=== PATIENT | male | born 1995 | race Caucasian/White ===

== ENCOUNTER 2018-01-28 21:36 | Emergency (ER) | payer BC ==
--- OUTSIDE RECORDS SUMMARY | 2018-01-28 21:50 | XMS REPORT ---
:1995 External Reference #:[id number] Author Organization [facility] Address [address] [place] [address] Phone [phone] Care Team Providers Name Role Phone Robby Phipps M.D. Care Team Information Retail Support Specialist Unavailable Payers Type Date Identification Numbers Payment Provider Subscriber Commercial Effective: Policy Number: [employer] BC/BS August Darian 2014 [id number] Group Name: [employer] o [address] [address] PayID: [id number] TAVON Plunkett [address] Problems Date Description Provider Status Onset: 08/06/2016 Gastroesophageal reflux disease with Robby Phipps M.D. 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 Seat Belt/Car Seat 10/31/2015 Always uses seat belt Smoke Alarms Yes Smoke Alarms Carbon Monoxide Detector: Yes Allergies, Adverse Reactions, Alerts Date Description Reaction Status Severity Comments 10/31/2015 Grass active 10/31/2015 Amoxicillin Urticaria active 10/31/2015 Cephalosporins active Medications Medication Date Status Form Strength Qnty SIG Indications Ordering Provider Levocetirizine 05/31 Active Tablets 5mg 30tab 1 by mouth L50.5 Chayo Phippside /2017 s coby trinh M.D. Ventolin HFA 11/19 Active Aerosol 108(90Bas 18gm 2 puffs J45.40 Quezada , /2017 e) every 4 Francis mcg/Act hours as Dheeraj Pimentel needed Asmanex HFA 11/19 Active Aerosol 200mcg/Ac 13gm 2 puffs J45.40 t every day Robby Olivares with Edwin.Juan spacer, rinse and spit after use. Prednisone 05/31 Hx Tablets 20mg 18tab 3 tab by J45.41 s mouth every Johan. - day for 3 M.D. then by mouth daily for 3 days then 1 by mouth daily for 3 days Erythromycin 11/26 Hx Ointment 5mg/GM 3.5gm 05/20 in. B30.9 strip left Robby Olivares - eye three M.D. 05/31 times a day until clear for 24 hours No Active 11/19 Hx Unknown Medications /2016 - 11/19 Famotidine 08/03 Hx Tablets 20mg 60tab 1 by mouth K21.9 s every day Robby Batres M.D. 01/12 No Active 06/01 Hx Unknown Medications /2016 - 08/03 Prednisone 02/11 Hx Tablets 20mg 18tab 3 tab by J98.01 s mouth every Johan. - day for 3 M.D. 02/20 days then by mouth daily for 3 days then 1 by mouth daily for 3 days Doxycycline 02/11 Hx Capsules 100mg 20cap 1 by mouth J01.90 Aniya Phipps s twice a day Robby Batres M.D. 02/21 Montelukast 02/11 Hx Tablets 10mg 90tab 1 tab by Desire s mouth every Johan. - evening M.D. 06/01 Dymista 02/11 Hx Suspension 137-50mcg 23gm 1-2 sprays Desire, / intranasal Robby Olivares - every day M.D. 06/01 No Active 10/30 Hx Desire, Robby RodríguezDMeche 10/30 Prednisone 10/30 Hx Tablets 20mg 18tab 3 tab by J98.01 Praveen, s mouth every Johan. - day for 3 M.D. 11/08 days then by mouth daily for 3 days then 1 by mouth daily for 3 days Proair 10/30 Hx Aerosol 108(90Bas 1unit 2 puffs J98.01 Desire, Respicl e) s every 4 Johan. - mcg/Act hours as M.D. 06/01 Amoxicillin 10/30 Hx Tablets 875mg 20tab 1 tab by J01.90 s mouth twice Johan. - a day M.D. 10/30 Clarithromycin 10/30 Hx Tablets 500mg 20tab 1 cap by Desire s mouth twice Johan. - a day M.D. 11/09 Immunizations CPT Code Status Date Vaccine Lot # [id number] Given 10/31/2015 Adacel-DTaP 11-64 Yrs Of Age [id number] Vital Signs Date Vital Result Comment 01/12/2018 Weight 237.00 lb BP Systolic 130 mmHg BP Diastolic 66 mmHg Body Temperature 99.4 F Height 74.75 inches 6'2.75" BMI (Body Mass Index) 29.8 kg/m2 05/31/2017 Weight 219.00 lb BP Systolic 110 mmHg BP Diastolic 70 mmHg Body Temperature 98.2 F Height 74.75 inches 6'2.75" BMI (Body Mass Index) 27.6 kg/m2 11/26/2016 Weight 219.50 lb BP Systolic 118 mmHg BP Diastolic 58 mmHg Body Temperature 97.0 F Height 74.75 inches 6'2.75" Heart Rate 72 /min BMI (Body Mass Index) 27.6 kg/m2 Left Visual Acuity Distance 20/20 sees color Right Visual Acuity Distance 20/20 11/19/2016 Weight 221.50 lb BP Systolic 110 mmHg BP Diastolic 80 mmHg Body Temperature 99.0 F Height 74.75 inches 6'2.75" Heart Rate 72 /min BMI (Body Mass Index) 27.9 kg/m2 08/03/2016 Weight 217.00 lb BP Systolic 130 mmHg BP Diastolic 80 mmHg Body Temperature 97.7 F Height 74.75 inches 6'2.75" BMI (Body Mass Index) 27.3 kg/m2 06/01/2016 Weight 207.00 lb BP Systolic 120 mmHg BP Diastolic 70 mmHg Body Temperature 97.9 F Height 74.75 inches 6'2.75" BMI (Body Mass Index) 26.0 kg/m2 Body Mass Index Percentile 87 % 03/24/2016 Weight 225.00 lb BP Systolic 120 mmHg BP Diastolic 74 mmHg Body Temperature 97.3 F Height 74.75 inches 6'2.75" BMI (Body Mass Index) 28.3 kg/m2 Body Mass Index Percentile 68 % 02/12/2016 Weight 219.00 lb BP Systolic 120 mmHg BP Diastolic 64 mmHg Body Temperature 97.9 F Height 74.75 inches 6'2.75" BMI (Body Mass Index) 27.6 kg/m2 10/31/2015 Weight 203.50 lb BP Systolic 110 mmHg BP Diastolic 60 mmHg Body Temperature 97.1 F Height 74.75 inches 6'2.75" Heart Rate 100 /min BMI (Body Mass Index) 25.6 kg/m2 Results Description No Information Procedures Date CPT Code Description Status 03/24/2016 92511 Tympanometry Completed 03/24/2016 34868 Audiogram/Pure Tone Hearing Test Completed Encounters Type Date Location Provider CPT E/M Dx Office Visit 05/31/2017 3:20p Main Office Robby Phipps M.D. 96206 J06.9 J45.41 L50.5 Office Visit 11/26/2016 1:50p Main Office Robby Phipps M.D. 89308 B30.9 Office Visit 11/19/2016 10:50a Main Office Robby Phipps M.D. 43339 J30.9 J45.40 Office Visit 08/03/2016 3:50p Main Office Robby Phipps M.D. 83946 K21.9 Office Visit 06/01/2016 2:50p Main Office Robby Phipps M.D. 72600 S00.83xA Office Visit 03/24/2016 3:30p Main Office Robby Phipps M.D. 45857 H90.2 Office Visit 02/12/2016 1:20p Main Office Robby Phipps M.D. 64323 J98.01 J06.9 J01.90 Office Visit 10/31/2015 11:30a Main Office Robby Phipps M.D. 17782 J30.9 J98.01 J01.90 Z23 Office Visit 08/16/2015 10:00a Main Office Francis Quezada M.D. 75384 Z02.4 Plan of Care No Information Available
--- NOTE | 2018-01-28 22:55 | UC ---
Lower Extremity/Ankle HPI - HPI Summary HPI Summary: R ankle gave out and pt fell injuring R ankle and foot - History of Current Complaint Chief Complaint: UCLowerExtremity Stated Complaint: RT ARM INJ Time Seen by Provider: 01/28/18 22:40 Hx Obtained From: Patient Onset/Duration: Sudden Onset Pain Intensity: 3 Aggravating Factor(s): Ambulation Able to Bear Weight: Yes - Allergies/Home Medications Allergies/Adverse Reactions: Allergies Allergy/AdvReac Type Severity Reaction Status Date / Time amoxicillin [From Augmentin] Allergy Hives Verified 01/28/18 22:14 clavulanic acid Allergy Hives Verified 01/28/18 22:14 [From Augmentin] Home Medications: Home Medications Albuterol HFA INHALER* [Ventolin HFA Inhaler*] 2 puff INH Q4H PRN 01/28/18 [ History Confirmed 01/28/18] Aspirin/Acetaminophen/Caffeine [Acetaminophen/Aspirin/Caf 250-250-65 mg] 500 mg PO Q6H PRN 01/28/18 [History Confirmed 01/28/18] Ibuprofen [Motrin Ib] 400 mg PO Q6H PRN 01/28/18 [History Confirmed 01/28/18] Levocetirizine Dihydrochloride [Xyzal Allergy 24Hr] 5 mg PO BEDTIME 01/28/18 [ History Confirmed 01/28/18] diphenhydrAMINE HCl [Benadryl Allergy] 50 mg PO ONCE PRN 01/28/18 [History Confirmed 01/28/18] PMH/Surg Hx/FS Hx/Imm Hx Previously Healthy: Yes - Surgical History Surgical History: Yes Surgery Procedure, Year, and Place: appy - Family History Known Family History: Positive: None - Social History Occupation: Employed Full-time Lives: Alone Alcohol Use: Weekly Substance Use Type: None Smoking Status (MU): Never Smoked Tobacco Type: Smokeless Tobacco Amount Used/How Often: 1 can per day Length of Time of Smoking/Using Tobacco: 6 yrs - Immunization History Vaccination Up to Date: Yes Review of Systems Constitutional: Negative Skin: Other - abrasion L knee Eyes: Negative ENT: Negative Respiratory: Negative Cardiovascular: Negative Gastrointestinal: Negative Genitourinary: Negative Motor: Negative Neurovascular: Negative Musculoskeletal: Other: - R ankle/foot pain Neurological: Negative Psychological: Negative Is Patient Immunocompromised?: No All Other Systems Reviewed And Are Negative: Yes Physical Exam Triage Information Reviewed: Yes Appearance: Well-Appearing Vital Signs: Initial Vital Signs Temp 98.3 F 01/28/18 22:18 Pulse 77 01/28/18 22:18 Resp 16 01/28/18 22:18 BP 128/65 01/28/18 22:18 Pulse Ox 99 01/28/18 22:18 Vital Signs Reviewed: Yes Eyes: Positive: Conjunctiva Clear ENT: Positive: Normal ENT inspection Neck: Positive: Supple, Nontender, No Lymphadenopathy Respiratory: Positive: Lungs clear, Normal breath sounds Cardiovascular: Positive: RRR, No Murmur Abdomen Description: Positive: Nontender, No Organomegaly, Soft Bowel Sounds: Positive: Present Musculoskeletal: Positive: Other: - RLE: hip, knee with no tenderness or deformity. R lateral ankle/ R lateral foot with swelling and tenderness. foot has full s/v/m function Neurological: Positive: Alert Psychological: Positive: Age Appropriate Behavior Skin Exam: Normal, Other - Abrasion L knee but no bony deformity or tenderness. Diagnostics - Radiology No standard instances Radiology Interpretation Completed By: ED Physician - wet read ankle sts but no fx. foot no fx Lower Extremity Course/Dx - Course Course Of Treatment: no fx or dislocation. - Differential Dx/Diagnosis Provider Diagnoses: Sprain R ankle and R lateral foot. Abrasion L knee Discharge - Sign-Out/Discharge Documenting (check all that apply): Patient Departure All imaging exams completed and their final reports reviewed: No - Discharge Plan Condition: Stable Disposition: HOME Patient Education Materials: Ankle Sprain (ED), Foot Sprain (ED), Abrasion (ED) Referrals: Robby Tolliver MD [Primary Care Provider] - 5 Days Davis Malagon MD [Medical Doctor] - 5 Days Additional Instructions: FOLLOW UP WITH DR TOLLIVER OR DR MALAGON IN 5 DAYS FOR A RECHECK - Billing Disposition and Condition Condition: STABLE Disposition: Home
--- NOTE | 2018-01-29 07:59 | RAD ---
INDICATION: Right ankle injury. TECHNIQUE: 3 views of the right ankle were obtained. FINDINGS: Soft tissue swelling is noted along the anterolateral aspect of the ankle. No fracture is seen. Joint spaces appear maintained. IMPRESSION: SOFT TISSUE SWELLING, NO FRACTURE IS SEEN. R0
--- NOTE | 2018-01-29 08:01 | RAD ---
INDICATION: Right foot injury. TECHNIQUE: 3 views of the right foot were obtained. FINDINGS: There is lateral soft tissue swelling. The bones are normal alignment. No fracture is seen. Joint spaces appear maintained. IMPRESSION: SOFT TISSUE SWELLING, NO FRACTURE IS SEEN. R0
--- NOTE | 2018-01-31 10:17 | UC ---
Discharge - Sign-Out/Discharge Documenting (check all that apply): Post-Discharge Follow Up All imaging exams completed and their final reports reviewed: Yes - Discharge Plan Condition: Stable Disposition: HOME Patient Education Materials: Ankle Sprain (ED), Foot Sprain (ED), Abrasion (ED) Referrals: Davis Malagon MD [Medical Doctor] - 5 Days Robby Tolliver MD [Primary Care Provider] - 5 Days Additional Instructions: FOLLOW UP WITH DR TOLLIVER OR DR MALAGON IN 5 DAYS FOR A RECHECK - Billing Disposition and Condition Condition: STABLE Disposition: Home
== END 2018-01-28 23:36 | disposition home or self-care (01) ==
LOC: UCCORT 21:36
DX: S93.601A Unspecified sprain of right foot, initial encounter (principal); S80.212A Abrasion, left knee, initial encounter; S96.911A Strain of unspecified muscle and tendon at ankle and foot level, right foot, initial encounter; W19.XXXA Unspecified fall, initial encounter; Y93.9 Activity, unspecified; Y92.9 Unspecified place or not applicable; Z88.0 Allergy status to penicillin; Z88.8 Allergy status to other drugs, medicaments and biological substances; F17.220 Nicotine dependence, chewing tobacco, uncomplicated
CPT/HCPCS: 99203; G0463

== ENCOUNTER 2018-04-13 12:19 | Day surgery (SDC) | payer BC ==
[~2018-04-13 12:19] MED LIST: Buffered Lidocaine 0.9% SYRIN* 5 ML/SYR SYRINGE INTRADERM ONE; Dexamethasone TAB* 4 MG PO ONE; DiMENhydriNATE IV* 50 MG/ML VIAL IV PUSH PRN; Famotidine IV* 10 MG/ML 2 ML (20 mg) IV ONE; Morphine VIAL* 4 MG/ML VIAL (1 ml vial) IV PRN; Naloxone* 0.4 MG/ML 1 ML VIAL IV PRN; Ondansetron TAB* 4 MG PO ONE; PROCHLORPERAZINE INJ 5 MG/ML 2 ML VIAL IV PRN; Scopolamine 1.5 mg* PATCH TRANSDERM PRN; fentaNYL* 50 MCG/ML 2 ML VIAL (100 MCG VIAL) IV PRN
[2018-04-13] MEDS ORDERED: Famotidine IV* 10 MG/ML 2 ML (20 mg) ONE (13:23)
[2018-04-13] MEDS ORDERED: Ondansetron ODT TAB* 4 MG ONE (13:23)
[2018-04-13] MEDS ORDERED: Dexamethasone TAB* 4 MG ONE (13:24)
[2018-04-13] MEDS ORDERED: Clindamycin 900 MG/D5W BAG(*) 900 MG/50 ML BAG IVPB ONE (13:24)
[2018-04-13] MEDS ORDERED: fentaNYL* 50 MCG/ML 5 ML VIAL (250 MCG VIAL) ONE (14:01)
[2018-04-13] MEDS ORDERED: Midazolam* 1 MG/ML 5 ML VIAL (5 MG) ONE (14:01)
[2018-04-13] MEDS ORDERED: KETAMINE HCL* 50 MG/ML 10 ML VIAL ONE (14:01)
[2018-04-13] MEDS ORDERED: Bupivacaine 0.5% W/EPI SDV* 30 ML VIAL ONE (14:52)
[2018-04-13] MEDS ORDERED: Bupivacaine 0.25% W/EPI* 10 ML SDV ONE (14:52)
[2018-04-13] MEDS ORDERED: Ketorolac INJ* 30 MG/ML 1 ML VIAL ONE (15:19)
[2018-04-13] MEDS ORDERED: Propofol* 10 MG/ML 20 ML BTL ONE (15:19)
[2018-04-13] MEDS ORDERED: Lidocaine 2% PF * 5 ML VIAL ONE (15:19)
[2018-04-13] MEDS ORDERED: Lidocaine 1% MPF wEPI 200,000* 30 ML SDV ONE (15:20)
[2018-04-13] MEDS ORDERED: Ropivacaine* 2 MG/ML 20 ML VIAL (0.2%) ONE (15:20)
[2018-04-13] MEDS ORDERED: HYDROmorphone INJ1* 1 MG/ML SYRINGE ONE (16:29)
[2018-04-13] MEDS ORDERED: Morphine VIAL* 4 MG/ML VIAL (1 ml vial) ONE (17:33)
[2018-04-13] MEDS ORDERED: oxyCODONE/Acetamin 5/325 MG* TAB ONE (17:34)
[2018-04-13] MEDS: oxyCODONE/Acetamin 5/325 MG* TAB PO PRN ×2 (17:34→17:36)
[2018-04-13 18:43] VITALS: BP 120/73
--- NOTE | 2018-04-14 11:21 | OP ---
CC: PCP, Robby Phipps MD * DATE OF OPERATION: 04/13/18 - [facility] DATE OF : 89 ATTENDING SURGEON: Radha Chao MD CHARGE POSTER: SAM Robles. An music library assistant was needed for the entirety of the case to help with positioning, retraction, and was utilized throughout all portions of the case. ANESTHESIOLOGIST: Dr. Mendenhall. ANESTHESIA: General. PRE-OP DIAGNOSIS: Right patellar dislocation with large OCD fragment from the patella. POST-OP DIAGNOSES: 1. Right patellar dislocation with large OCD fragment from the patella. 2. Lateral meniscal root fraying. OPERATIVE PROCEDURE: 1. Right knee arthroscopy with partial lateral meniscectomy as well as synovectomy. 2. Open repair of medial patellar facet OCD lesion. INDICATIONS: Panchito Farmer is a 22-year-old male who sustained injury to his knee where he dislocated his patella and then reduced it on its own. This occurred approximately 4 weeks ago. Eventually, he had persistent pain and went to Dr. Malagon, who obtained x-rays that demonstrated a large fracture of the medial patellar facet. He had an MRI that was obtained; it demonstrated significant amount of cartilage on this as well as MPFL tear and stretch of the ligaments of the patella. Risks and benefits were discussed at length included , but not limited to, bleeding; infection; damage to nerves, vessels, surrounding structures; wound nonhealing; persistent pain; need for further surgery; failure of the repair, need for further surgery; scarring; stiffness; incomplete relief of symptoms; risk of anesthesia; recurrent dislocations; risk of DVT. He has elected to proceed operative treatment. TOURNIQUET TIME: Zero minutes. IMPLANTS USED: Acumed Bioscrews Mini x3, all about 16 mm in length. COMPLICATIONS: None. ESTIMATED BLOOD LOSS: Minimal. DESCRIPTION OF PROCEDURE: The patient was greeted in the preoperative area by the attending surgeon. The correct extremity was marked and consent was confirmed. The patient was brought back to the operating suite, where he was placed in supine position on operating table and underwent general anesthesia with LMA intubation. Unsterile tourniquet was placed high on the proximal thigh. Lateral post was positioned. The right leg was then prepped and draped in usual sterile fashion beginning with chlorhexidine soap, scrub, and alcohol wipe and a final prep with ChloraPrep. After appropriate surgical pause indicating site, side, procedure and administration of antibiotics, the superolateral portal was injected with 30 cc of 1% lidocaine with epi. The anterolateral portal was made with 11 blade. The scope was introduced into the joint. The joint was examined. There was abundant synovitis and erythema and hemarthrosis. This was evacuated. The shaver was brought to the anteromedial portal and abundant synovitis was removed. The ACL and PCL were intact. The medial meniscus and medial compartment was intact with grade 0 changes. Medial meniscus was intact. Lateral compartment was examined and there were grade 0 changes. There was fraying in the root of the meniscus with hemorrhage. This was debrided back using the shaver. The knee was then placed in the extension and after the lavage of the knee, the fracture fragment was identified and it was found to be some early healing process. Decision was made to try to repair this appropriately. At this point, the arthroscopy was stopped. A medial based incision was made using 15-blade. The soft tissues were carefully exposed to show the peritenon. The medial parapatellar arthrotomy was then made using 15-blade. Soft tissues were carefully exposed. This demonstrated the malunited and malpositioned fracture fragment, which was then loosened gently using the [place] elevator. The piece was a substantial-sized piece and it was approximately quarter of the patella. The edges of the fracture fragment was debrided. It was protected on the back table. Meanwhile , the donor area was then carefully exposed and visualized through the incision. The arthrotomy was then lengthened so that the patella was able to be flipped a little bit more for easier visualization. The curette as well as rongeur was then used to generally debride the bony edges. The wound was then irrigated and hematoma was flushed. After which, the piece was then brought back and keyed into position. It was then stabilized with appropriate guidewires for the Mini Acumed bioabsorbable headless Acutrak screw. The 3 K- wires were then placed. This helped to hold the OCD lesion in an anatomic alignment, there was a very slight step-off. This was the beginning with the middle pin. This was then overdrilled with a cannulated drill bit and then screw hole tapped. Then, a size 16 mm screw was placed with excellent purchase. This was placed slightly beneath between the cartilage surface. The remaining 2 guidewires were then addressed in similar fashion and size 16 mm screws were placed. This allowed for fixation of the fragment. Images were obtained and the wounds were then copiously irrigated. At this point, the soft tissues were addressed. Because we did a large parapatellar arthrotomy, the thought was that if I could oversew with pants over vest, I would not have to do a formal repair, also placing an anchor medially may disrupt my ORIF of the OCD lesion. The wound was copiously irrigated with sterile saline. The quadriceps fascia was closed with 0- Vicryl in interrupted fashion as well as patellar tendon. The quadriceps was closed with 0-Vicryl, but the final pants over vest with #2 Ethibond sutures was then done to allow us a medial imbrication. The wounds were then copiously irrigated. The skin was closed in layers with 2-0 Vicryl and ashley. The portals were closed with 3-0 nylon. The wounds were copiously irrigated with sterile saline and then injected with 0.2% ropivacaine 20 cc both superficially and intra- articularly. Sterile dressings were applied as well as the Cryo Cuff and hinged knee brace locked in extension. He was awoken from anesthesia, transferred to PACU in stable condition. POSTOPERATIVE PLAN: He will be toe-touch weightbearing. He will be keeping the leg extended. I will see him in the office in 10 to 14 days with repeat x- rays AP and lateral views. DVT prophylaxis was considered, but deferred due to no previous personal or family history and will be discharged on pain medication. I will see the patient back in 10 to 14 days. [id number]/[facility] #: [id number] [facility]PITALKathryn
[2018-04-16] MEDS ORDERED: Scopolamine PATCH Remove* 1 NOTE MISC PATCH OFF ONE (06:06)
== END 2018-04-13 18:53 | disposition home or self-care (01) ==
LOC: OR 12:19
PROVIDERS: ATTEND Orthopaedic Surgery
DX: S83.094A Other dislocation of right patella, initial encounter (principal); S83.281A Other tear of lateral meniscus, current injury, right knee, initial encounter; X50.0XXA Overexertion from strenuous movement or load, initial encounter; Y92.9 Unspecified place or not applicable; J45.909 Unspecified asthma, uncomplicated
CPT/HCPCS: A9270-GY; J1170; J1885; J2001; J2250; J2270; J2704; J2795; J3010; J8540

== ENCOUNTER 2018-11-06 13:20 | Emergency (ER) | payer BC ==
[2018-11-06 14:30] VITALS: BP 152/87
[2018-11-06] MEDS ORDERED: Ibuprofen TAB* 600 MG PO ONE (14:38)
--- NOTE | 2018-11-06 14:46 | UC ---
Lower Extremity/Ankle HPI - HPI Summary HPI Summary: Went to a wedding last night. Got home at 5 AM and rolled his ankle. Awoke to severe right ankle pain with swelling and bruising. Really unable to walk on it. - History of Current Complaint Chief Complaint: UCLowerExtremity Stated Complaint: RIGHT ANKLE INJURY Time Seen by Provider: 11/06/18 14:35 Hx Obtained From: Patient Onset/Duration: Sudden Onset, Lasting Hours - 9 Severity Initially: Mild Severity Currently: Severe Pain Intensity: 10 Aggravating Factor(s): Standing, Ambulation Alleviating Factor(s): Rest, Elevation Able to Bear Weight: No - Allergies/Home Medications Allergies/Adverse Reactions: Allergies Allergy/AdvReac Type Severity Reaction Status Date / Time amoxicillin [From Augmentin] Allergy Intermediate Hives Verified 04/13/18 13:50 clavulanic acid Allergy Intermediate Hives Verified 04/13/18 13:50 [From Augmentin] Sweat Allergy Severe Hives Uncoded 04/13/18 13:50 Seasonal Allergies Allergy Intermediate Difficulty Uncoded 04/13/18 13:50 Breathing/Wheezing Home Medications: Home Medications Fexofenadine (NF) [Evelyne 180 (NF)] 180 mg PO TID 11/06/18 [History Confirmed 11/06/18] PMH/Surg Hx/FS Hx/Imm Hx Respiratory History: Asthma - and allergies. - Surgical History Surgical History: Yes Surgery Procedure, Year, and Place: Appendectoomy 2014-[place]. TONSILLECTOMY/ ADENOIDECTOMY-2001 [place]. Right knee 03/2018 - Family History Known Family History: Positive: Hypertension - Social History Occupation: Employed Full-time Lives: With Family Alcohol Use: Weekly Alcohol Amount: 2 days a week Substance Use Type: None Smoking Status (MU): Never Smoked Tobacco Type: Smokeless Tobacco Amount Used/How Often: chews 1 can per day Length of Time of Smoking/Using Tobacco: 6 yrs Have You Smoked in the Last Year: No - Immunization History Vaccination Up to Date: Yes Review of Systems All Other Systems Reviewed And Are Negative: Yes Skin: Positive: Bruising - right ankle ENT: Positive: Nasal Discharge - allergies Respiratory: Positive: Cough - from allergies. Musculoskeletal: Positive: Arthralgia - right ankle. Physical Exam Triage Information Reviewed: Yes Appearance: Well-Appearing, No Pain Distress - with leg elevated in wheelchair, Well-Nourished Vital Signs: Initial Vital Signs Temp 97.9 F 11/06/18 14:24 Pulse 79 11/06/18 14:24 Resp 16 11/06/18 14:24 BP 152/87 11/06/18 14:24 Pulse Ox 100 11/06/18 14:24 Vital Signs Reviewed: Yes Eyes: Positive: Conjunctiva Clear Neck exam: Normal Respiratory Exam: Normal Cardiovascular Exam: Normal Musculoskeletal: Positive: ROM Limited @ - right ankle with significant swelling and bruising. Tender over the medial malleolus and distal tibia Neurological Exam: Normal Psychological Exam: Normal Skin Exam: Normal Lower Extremity Course/Dx - Differential Dx/Diagnosis Differential Diagnosis/HQI/PQRI: Fracture (Closed), Sprain, Strain Provider Diagnosis: Displaced fracture of medial malleolus of right tibia, initial encounter for closed fracture Discharge - Sign-Out/Discharge Documenting (check all that apply): Patient Departure All imaging exams completed and their final reports reviewed: Yes - Discharge Plan Condition: Stable Disposition: HOME Prescriptions: HYDROcodone/ACETAMIN 5-325 MG* [[place] 5-325 TAB*] 1 tab PO Q4H PRN #20 tab MDD 6 PRN Reason: Pain - Severe Ibuprofen TAB* [Motrin TAB* 600 MG] 600 mg PO Q6H PRN #100 tab PRN Reason: Pain - Moderate Patient Education Materials: Ankle Fracture (ED), Hydrocodone/Acetaminophen ( By mouth) Referrals: Robby Phipps MD [Primary Care Provider] - Davis Malagon MD [Medical Doctor] - 1 Day (follow up ankle fracture) Additional Instructions: STOP CHEWING TOBACCO!!! - Billing Disposition and Condition Condition: STABLE Disposition: Home
== END 2018-11-06 15:56 | disposition home or self-care (01) ==
LOC: UCCORT 13:20
DX: S82.51XA Displaced fracture of medial malleolus of right tibia, initial encounter for closed fracture (principal); X50.0XXA Overexertion from strenuous movement or load, initial encounter; Y92.9 Unspecified place or not applicable; F17.220 Nicotine dependence, chewing tobacco, uncomplicated
CPT/HCPCS: 99213; A9270-GY; G0463